=== PATIENT | female | born 2000 | race Caucasian/White ===

== ENCOUNTER 2021-10-21 14:45 | Emergency (ER) | payer SELFPAY ==
[~2021-10-21] VITALS: Ht 165.1 cm; Wt 83.0 kg
[2021-10-21] MEDS ORDERED: GENTAMICIN SULF5 ML OS (17:34)
[2021-10-21] MEDS ORDERED: ERYTHROMYCIN O3.5 GM OS (17:34)
[2021-10-21 17:56] VITALS: BP 121/71
== END 2021-10-21 17:56 | disposition home or self-care (01) | DRG 125 ==
LOC: ED 14:45
DX: H10.9 Unspecified conjunctivitis (principal); G40.909 Epilepsy, unspecified, not intractable, without status epilepticus; F17.210 Nicotine dependence, cigarettes, uncomplicated

== ENCOUNTER 2022-04-04 17:04 | Emergency (ER) | payer SELFPAY ==
[~2022-04-04] VITALS: Ht 165.1 cm; Wt 70.0 kg
[~2022-04-04 17:04] MED LIST: ERYTHROMYCIN O3.5 GM OS; GENTAMICIN SULF5 ML OS
[2022-04-04 17:35] VITALS: BP 97/61
[2022-04-04 18:34] LABS: HEMOGLOBIN 12.2 g/dl (12.0-16.0); IMMATURE GRANULOCYTES 0.3 % (0.0-5.0); MEAN CELL VOLUME 92.2 fL CALC (80.0-100.0); MEAN CORPUSCULAR HGB 29.6 pG CALC (26.0-32.0); MEAN CORPUSCULAR HGB CONC 32.1 g/dL CAL (32.0-36.0); NEUT# 5.15 thou/uL (2.00-7.15); RED BLOOD COUNT 4.12 mill/uL (4.20-5.60); RED CELL DISTRI WIDTH 13.2 % (11.5-15.5)
[2022-04-04 18:55] LABS: ALBUMIN 3.9 g/dL (3.2-5.0); ALKALINE PHOSPHATASE 46 u/l (38-126); ANION GAP 9 (6-22 (CALC)); BILIRUBIN, TOTAL 0.4 mg/dL (0.0-1.4); BUN 11 mg/dL (7-17); BUN/CREATININE RATIO 15 (12-20 (CALC)); CARBON DIOXIDE 27 mmol/l (22-30); CHLORIDE 107 mmol/l (95-108); CREATININE 0.7 mg/dL (0.5-1.0); GFR FOR AFR.AMER. > 60 ML/MIN (>=60 (CALC)); GFR OTHER RACES > 60 ML/MIN (>=60 (CALC)); POTASSIUM 4.1 mmol/l (3.5-5.1); SGOT/AST 17 u/l (14-36); SODIUM 139 mmol/l (137-146); TOTAL PROTEIN 6.7 g/dL (6.3-8.2)
[2022-04-04 19:42] LABS: URINE BILIRUBIN - DIPSTICK NEGATIVE (NEGATIVE); URINE BLOOD DIPSTICK NEGATIVE (NEGATIVE); URINE COLOR YELLOW; URINE GLUCOSE - DIPSTICK NEGATIVE (NEGATIVE); URINE KETONE NEGATIVE (NEGATIVE); URINE LEUK ESTERASE NEGATIVE (NEGATIVE); URINE PH 5.5 (4.5-8.0); URINE PROTEIN - DIPSTICK NEGATIVE (NEG-TRACE); URINE SPECIFIC GRAVITY >=1.030; URINE UROBILINOGEN - DIPSTICK 0.2 E.U./dL (0.2)
[2022-04-04 19:43] LABS: URINE NITRITE - DIPSTICK NEGATIVE (Negative)
[2022-04-04] MEDS ORDERED: ONDANSETRON4 MG PO (19:45)
[2022-04-04] MEDS ORDERED: PROTONIX40 M2 PO (19:47)
[2022-04-04 19:50] VITALS: BP 97/61
== END 2022-04-04 19:54 | disposition home or self-care (01) | DRG 392 ==
LOC: ED 17:04
PROVIDERS: Family Medicine; Nurse Practitioner
DX: R11.2 Nausea with vomiting, unspecified (principal); G40.909 Epilepsy, unspecified, not intractable, without status epilepticus; F17.210 Nicotine dependence, cigarettes, uncomplicated; Z20.822 Contact with and (suspected) exposure to COVID-19